=== PATIENT | male | born 1955 | race Caucasian/White ===

== ENCOUNTER 2016-12-12 12:48 | Emergency (ER) | payer OTHER ==
[2016-12-12 12:57] VITALS: PULSE 74; RESP 18; TEMP 97.7; O2SAT 97
--- NOTE | 2016-12-12 13:34 | EDPHY ---
H & P Stated Complaint: Nausea x 2 wks; dizzy/having trouble concentrating Time Seen by Provider: 12/12/16 13:11 HPI/ROS: CHIEF COMPLAINT: Dizzy HISTORY OF PRESENT ILLNESS: The patient is a 61 year old male who presents to the emergency department with nausea and dizziness. The patient has been feeling nauseous for the past 2 weeks. The nausea comes in waves. No associated emesis or abdominal pain. Over the last 4 days, the patient developed dizziness. The dizziness occurs when standing or moving quickly. He feels off balance and disoriented. He states he is more fatigued than usual. Today he felt a low grade headache in the front of his head. Patient also describes an episode of feeling off balance drifting to the left. Patient denies chest pain or shortness of breath. He denies fevers, chills, cough, patient denies numbness or tingling in his arms or legs, visual complaints, focal weakness, or head trauma. Patient does report he has a history of having carotid stenosis bilaterally for which she is followed by Dr. Mckeon. REVIEW OF SYSTEMS: Aside from elements discussed in the HPI, a comprehensive 10-point review of systems was reviewed and is negative. PAST MEDICAL HISTORY: Anterior cervical disc fusion, Degenerative disc disease, Bilateral carotid blockage. SOCIAL HISTORY: . Retired pharmacist. VITAL SIGNS: Reviewed by me GENERAL: Well-developed, well-nourished, resting comfortably in no respiratory distress. HEENT: Atraumatic. Eyes: No icterus, no injection. Slight nystagmus on rightward gaze. Mouth: moist mucous membranes. No erythema or lesions. Neck: supple with no adenopathy. No carotid bruits. LUNGS: Clear to auscultation bilaterally, no wheezes, rhonchi or rales. CARDIAC: Regular rate and rhythm, no rubs, murmurs or gallops. ABDOMEN: Soft, nontender, nondistended, bowel sounds normal. BACK: No CVA tenderness. EXTREMITIES: No trauma. No edema. Range of motion is normal throughout. NEURO: Alert and oriented, cranial nerves II through XII are intact. Motor strength 5 over 5 in all major muscle groups. Sensation intact to light touch. Normal finger to nose. SKIN: Warm and dry, no rash. PSYCHIATRIC: Normal mentation, no agitation. Portions of this note were transcribed by a medical staff assistant. I personally performed a history, physical exam, medical decision making, and confirmed accuracy of information the transcribed note. - Personal History Current Tetanus Diphtheria and Acellular Pertussis (TDAP): Unsure - Medical/Surgical History Other PMH: blockage in carotids (followed by Mike). cholesterol - Social History Smoking Status: Never smoked Constitutional: Initial Vital Signs Temperature (C) 36.5 C 12/12/16 12:50 Heart Rate 74 12/12/16 12:50 Respiratory Rate 18 12/12/16 12:50 O2 Sat (%) 97 12/12/16 12:50 O2 Delivery Mode Room Air Allergies/Adverse Reactions: No Known Allergies Allergy (Verified 12/12/16 12:57) Home Medications: Medication Instructions Recorded Aspirin [Aspirin 81mg (OTC)] 0 mg PO DAILY 03/21/12 CHOLECALCIFEROL [Vitamin D] 4,000 unit PO 03/21/12 DESVENLAFAXINE SUCCINATE [Pristiq] 0 mg PO 03/21/12 ESOMEPRAZOLE MAG TRIHYDRATE 0 mg PO DAILY 03/21/12 [NEXIUM] Lisinopril [Zestril 5 mg (RX)] 0 mg PO DAILY 03/21/12 Pregabalin [Lyrica] 0 mg PO BID 03/21/12 Rosuvastatin Calcium [Crestor 40mg 0 mg PO DAILY 03/21/12 (RX)] Cyclobenzaprine [Flexeril 10 MG 10 mg PO TID 03/25/12 (RX)] Alfuzosin HCl [Alfuzosin HCl ER] 10 mg PO 12/12/16 Hydrochlorothiazide [HCTZ (*)] 12.5 mg PO 12/12/16 Levothyroxine [Synthroid 125 mcg 125 mcg PO DAILY06 12/12/16 (*)] Meclizine HCl [Meclizine HCl 25 mg 25 mg PO TID PRN #20 tab 12/12/16 (RX,OTC)] Meloxicam [Mobic 7.5 mg] 7.5 mg PO 12/12/16 Medical Decision Making - Diagnostics EKG Interpretation: 12-LEAD EKG: Please see the full report in [facility]. My interpretation: normal sinus rhythm, T-wave inversion 3 in AVF. Imaging: Results: CT scan of the head was obtained. I viewed the images independently on the PACS system. I discussed the results of the study with the radiologist. Impression: No acute findings. Please see the full radiology report. Results: CTA scan of the head was obtained. I viewed the images independently on the PACS system. I discussed the results of the study with the radiologist. Impression: No acute findings. Please see the full radiology report. Results: CTA scan of the neck was obtained. I viewed the images independently on the PACS system. I discussed the results of the study with the radiologist. Impression: No acute findings, no dissection or significant flow limitations. Please see the full radiology report. ED Course/Re-evaluation: CT imaging and lab work ordered. I offered meclizine or Zofran but patient declines. CT does not demonstrate dissection, hemorrhage, tumor, other abnormalities. Labs normal; no etiology of dizziness appreciated. Discussed further imaging to include MRI with the patient. He would prefer to follow up wiht PCP as out patient. Understands that cerebellar stoke or lesions in CPA better evaluated with MRI. Will take small dose of meclizine. See DC instructions. Differential Diagnosis: Differential diagnoses the patient's presenting complaints was considered including but not limited to intracranial injury, TIA, ischemic cerebrovascular accident, hemorrhagic cerebrovascular accident, hypoglycemia, metastases, tumor , seizure, or electrolyte abnormality - Data Points Laboratory Results: Laboratory Results 12/12/16 13:10 12/12/16 13:10 Medications Given: Discontinued Medications Meclizine HCl (Meclizine Hcl) 25 mg PO EDNOW ONE Stop: 12/12/16 16:09 Last Admin: 12/12/16 16:27 Dose: 25 mg Departure - Departure Disposition: Home, Routine, Self-Care Clinical Impression: Nausea alone, Dizziness, Vertigo Condition: Good Instructions: Vertigo (ED), Dizziness (ED) Additional Instructions: Please consider taking meclizine 25 mg by mouth every 8 hours as needed for dizziness. Please follow up with Dr. Kaufman as soon as possible. Seek care urgently if you develop severe headache, worsening symptoms, falling, vomiting, abdominal pain, fever, chest pain, shortness of breath, numbness or tingling in your arms or legs, or other concerns. Referrals: Paco Kaufman MD [Primary Care Provider] - As per Instructions Prescriptions: Meclizine HCl [Meclizine HCl 25 mg (RX,OTC)] 25 mg PO TID PRN #20 tab PRN Reason: Dizziness Report Scribed for: Kenia Hernandez Report Scribed by: Deborah Reyes Date of Report: 12/12/16 Time of Report: 13:38
[2016-12-12 13:52] LABS: % IMMATURE GRANULYOCYTES 0.6 % (0.0-1.1); ABSOLUTE IMMATURE GRANULOCYTES 0.06 10^3/uL (0.00-0.10); ADD DIFF? NO; ADD MORPH? NO; ADD SCAN? NO; ATYPICAL LYMPHOCYTE FLAG 0 (0-99); FRAGMENT RBC FLAG 0 (0-99); HEMATOCRIT 44.8 % (40.0-51.0); HEMOGLOBIN 15.8 g/dL (13.7-17.5); LEFT SHIFT FLG 0 (0-99); LIPEMIA HEMOLYSIS FLAG 90 (0-99); MEAN CELL HEMOGLOBIN 31.3 pg (27.9-34.1); MEAN CELL HEMOGLOBIN CONCENTR. 35.3 g/dL (32.4-36.7); MEAN CELL VOLUME 88.9 fL (81.5-99.8); MEAN PLATELET VOLUME 11.4 fL (8.7-11.7); PLATELET CLUMPS FLAG 0 (0-99); PLATELET COUNT 169 10^3/uL (150-400); RED BLOOD CELL COUNT 5.04 10^6/uL (4.40-6.38); RED CELL DISTRIBUTION WIDTH 12.3 % (11.5-15.2)
[2016-12-12 13:59] LABS: ALANINE AMINOTRANSFERASE 52 IU/L (21-72); ALBUMIN 4.5 g/dL (3.5-5.0); ALKALINE PHOSPHATASE 59 IU/L (38-126); ANION GAP 7 mEq/L (8-16); ASPARTATE AMINOTRANSFERASE 43 IU/L (17-59); BILIRUBIN,TOTAL 1.4 mg/dL (0.1-1.4); BILIRUBIN-CONJUGATED 0.4 mg/dL (0.0-0.5); CALCIUM 9.7 mg/dL (8.5-10.4); CARBON DIOXIDE 29 mEq/l (22-31); CHLORIDE 103 mEq/L (97-110); CREATININE 1.3 mg/dL (0.7-1.3); GLOMERULAR FILTRATION RATE 57; GLUCOSE 71 mg/dL (70-100); POTASSIUM 4.5 mEq/L (3.5-5.2); SODIUM 139 mEq/L (134-144); TOTAL PROTEIN 7.9 g/dL (6.3-8.2)
[2016-12-12] MEDS ORDERED: IOPAMIDOL (ISOVUE-370) 150 ML BTL IV ONE (14:05)
--- NOTE | 2016-12-12 14:09 | CPEKG ---
Heart Rate: 63 RR Interval: 952 P-R Interval: 172 QRSD Interval: 92 QT Interval: 404 QTC Interval: 414 P [place]: 35 QRS [place]: 83 T Wave [place]: 11 EKG Severity - NORMAL ECG - EKG Impression: SINUS RHYTHM Electronically Signed By: Kenia Hernandez 12-Dec-2016 16:31:42
[2016-12-12 14:10] LABS: TROPONIN I < 0.012 ng/mL (0-0.034)
[2016-12-12] MEDS ORDERED: MECLIZINE HCL 25 MG TAB PO ONE (16:08)
== END 2016-12-12 16:28 | disposition home or self-care (01) ==
DX: R42 Dizziness and giddiness (principal); R11.0 Nausea; Z79.82 Long term (current) use of aspirin
CPT/HCPCS: 84481-90; Q9967

== ENCOUNTER 2018-09-12 07:54 | Inpatient (IN) | payer OTHER ==
--- NOTE | 2018-09-12 06:26 | PDHPUP ---
History & Physical Update H&P update statement: This history and physical update is based on an assessment of the patient which was completed after admission or registration (within 24 hours), but prior to the surgery/procedure. H&P update: H&P reviewed & patient examined, no change in patient's condition since H&P completed
[~2018-09-12 07:54] MED LIST: TRANEXAMIC ACID 3,000 MG/50 ML BAG IRR ONE
[2018-09-12] MEDS ORDERED: ROPIVACAINE 0.2% 80 MG, EPINEPHrine 0.2 MG, KETOROLAC TROMETHAMINE 30 MG in SYRINGE 0 ML IU ONE (08:00)
[2018-09-12] MEDS ORDERED: TRANEXAMIC ACID 3,000 MG in NS (SYRINGE) 50 ML IRR ONE (08:00)
[2018-09-12] MEDS ORDERED: DEXAMETHASONE 4 MG/ML VIAL IVP ONE (08:27)
[2018-09-12] MEDS ORDERED: ACETAMINOPHEN 325 MG TAB PO ONE (08:27)
[2018-09-12] MEDS ORDERED: FAMOTIDINE 20 MG TAB PO ONE (08:27)
[2018-09-12] MEDS ORDERED: ceFAZolin 2 GM/DEXTROSE 100 ML IV ONE (08:27)
[2018-09-12] MEDS ORDERED: MIDAZOLAM 2 MG/2 ML VIAL IVP ONE (10:17)
--- NOTE | 2018-09-12 10:17 | PDANEPAE ---
ANE History of Present Illness Left hip arthroscopy ANE Past Medical History - Cardiovascular History Hx Hypertension: Yes Hx Arrhythmias: No Hx Chest Pain: No Hx Coronary Artery / Peripheral Vascular Disease: Yes Hx CHF / Valvular Disease: No Hx Palpitations: No Cardiovascular History Comment: CAD. dyslipidemia. followed by [facility] - Pulmonary History Hx COPD: No Hx Asthma/Reactive Airway Disease: No Hx Recent Upper Respiratory Infection: No Hx Oxygen in Use at Home: No Hx Sleep Apnea: Yes Sleep Apnea Screening Result - Last Documented: Positive Pulmonary History Comment: obstructive and central apnea positive- uses cpap - Neurologic History Hx Cerebrovascular Accident: No Hx Seizures: No Hx Dementia: No Neurologic History Comment: DDD with hx of 2 cervical fusions in 2009 - Endocrine History Hx Diabetes: No Hypothyroid: No Hyperthyroid: No Obesity: no Endocrine History Comment: hypothyroidism - Renal History Hx Renal Disorders: Yes Renal History Comment: urgency and frequency - Liver History Hx Hepatic Disorders: No - Neurological & Psychiatric Hx Hx Neurological and Psychiatric Disorders: Yes Neurological / Psychiatric History Comment: depression - Cancer History Hx Cancer: No - Congenital Disorder History Hx Congenital Disorders: No - GI History GERD: mild Hx Gastrointestinal Disorders: Yes Gastrointestinal History Comment: GERD - Other Health History Other Health History: wears contacts. small paper cut- darien[facility] office notified - Chronic Pain History Chronic Pain: Yes (left hip) - Surgical History Prior Surgeries: t&a 1966. left shoulder repair 1973. cervical fusion x2 february and may of 2010 ANE Review of Systems Review of Systems: - Exercise capacity METS (RN): 4 METS ANE Patient History - Allergies Allergies/Adverse Reactions: No Known Allergies Allergy (Verified 09/10/18 13:37) - Home Medications Home Medications: Aspirin [Aspirin 81mg (OTC)] 81 mg PO DAILY 03/21/12 [Last Taken 09/05/18] Cyclobenzaprine [Flexeril 10 MG (RX)] 5 - 10 mg PO TID PRN 03/25/12 [Last Taken 09/09/18] Levothyroxine [Synthroid 125 mcg (*)] 125 mcg PO MOTUTHFRSA@06 12/12/16 [Last Taken 09/11/18] Ascorbic Acid [Vitamin C 500 mg (*)] 1,500 mg PO DAILY 09/10/18 [Last Taken ] Atorvastatin Calcium [Lipitor 40 mg (*)] 40 mg PO DAILY 09/10/18 [Last Taken 02/23 06:10] DESVENLAFAXINE SUCCINATE [Pristiq] 50 mg PO DAILY 09/10/18 [Last Taken 09/12/18 06:10] Diclofenac Sodium 1% [Voltaren Gel (*)] 1 bean TP DAILY PRN 09/10/18 [Last Taken 08/08/18] Fluticasone Nasal [Flonase Nasal [place] (RX)] 2 sprays NASAL HS 09/10/18 [Last Taken 09/08/18] Herbals/Supplements -Info Only 1 ea PO DAILY 09/10/18 [Last Taken 08/29/18] Ibuprofen [Motrin (*)] 400 - 800 mg PO DAILY PRN 09/10/18 [Last Taken 09/05/18] Levothyroxine [Synthroid 137 mcg (*)] 137 mcg PO SUWE@06 09/10/18 [Last Taken 06:10] Lisinopril [Zestril 40 mg (*)] 40 mg PO DAILY 09/10/18 [Last Taken 09/11/18] Meloxicam [Mobic 15 mg] 15 mg PO DAILY PRN 09/10/18 [Last Taken 08/08/18] Multivitamins [Multivitamin (*)] 1 each PO DAILY 09/10/18 [Last Taken 08/29/18] Omeprazole 20 mg PO DAILY 09/10/18 [Last Taken 09/12/18 06:10] Tamsulosin HCl [Flomax 0.4 MG (*)] 0.4 mg PO HS 09/10/18 [Last Taken Unknown] amLODIPine BESYLATE [Norvasc 5 mg (*)] 5 mg PO DAILY 09/10/18 [Last Taken 06:10] Acetaminophen [Tylenol 325mg (*)] 325 mg PO DAILY PRN 09/12/18 [Last Taken 09/11] Pregabalin [Lyrica 75mg (*)] 75 mg PO BID 09/12/18 [Last Taken 09/12/18 06:10] celeCOXIB [Celebrex (*)] 200 mg PO DAILY18 09/12/18 [Last Taken 09/11/18 400mg] - NPO status NPO Status: no food or drink >8 hours NPO Since - Liquids (Date): 09/12/18 NPO Since - Liquids (Time): 06:30 NPO Since - Solids (Date): 09/11/18 NPO Since - Solids (Time): 20:30 - Anes Hx Anes Hx: no prior problems - Smoking Hx Smoking Status: Never smoked Marijuana use: No - Alcohol Use Alcohol Use: Occasionally - Family Anes Hx Family Anes Hx: none Family Hx Anesthesia Complications: none ANE Labs/Vital Signs - Labs Result Diagrams: 09/12/18 08:54 - Vital Signs Blood Pressure: 127/74 Heart Rate: 67 Respiratory Rate: 18 O2 Sat (%): 97 Height: 177.8 cm Weight: 98.883 kg ANE Physical Exam - Airway Neck exam: decreased ROM Mallampati Score: Class 2 Mouth exam: normal dental/mouth exam, poor dentition - Pulmonary Pulmonary: no respiratory distress, no rales or rhonchi - Cardiovascular Cardiovascular: regular rate and rhythym, no murmur, rub, or gallop - ASA Status ASA Status: II ANE Anesthesia Plan Anesthesia Plan: spinal Total IV Anesthesia: Yes
[2018-09-12] MEDS ORDERED: MIDAZOLAM 2 MG/2 ML VIAL ONE ×2 (10:18→10:22)
[2018-09-12] MEDS ORDERED: PROPOFOL/EMULSION 500 MG/50 ML BOTTLE IV ONE (10:23)
[2018-09-12] MEDS ORDERED: fentaNYL 100 MCG/2 ML INJ ONE (10:23)
[2018-09-12] MEDS ORDERED: NALOXONE HCL 0.4 MG/ML INJ IVP PRN ×2 (11:16→11:17)
[2018-09-12] MEDS ORDERED: oxyCODONE IR 5 MG TAB PO PRN (11:16)
[2018-09-12] MEDS ORDERED: ACETAMINOPHEN 500 MG TAB PO PRN (11:16)
[2018-09-12] MEDS ORDERED: HYDROCODONE/APAP 5/325 TAB PO PRN (11:16)
[2018-09-12] MEDS ORDERED: HYDROmorphONE/DILAUDID 2 MG/ML INJ IVP PRN (11:16)
[2018-09-12] MEDS ORDERED: fentaNYL 100 MCG/2 ML INJ IVP PRN (11:16)
[2018-09-12] MEDS ORDERED: ONDANSETRON 4 MG/2 ML VIAL IVP PRN ×2 (11:16→11:55)
[2018-09-12] MEDS ORDERED: ONDANSETRON 4 MG/2 ML VIAL ONE (11:45)
[2018-09-12] MEDS ORDERED: DIPHENOXYLATE/ATROPINE LOMOTIL 1 TAB PO PRN (11:55)
[2018-09-12] MEDS ORDERED: PROMETHAZINE HCL 25 MG SUPPR PR PRN (11:55)
[2018-09-12] MEDS ORDERED: TEMAZEPAM 15 MG CAP PO PRN (11:55)
[2018-09-12] MEDS ORDERED: ONDANSETRON DISINTEGRATING 4 MG TAB PO PRN (11:55)
[2018-09-12] MEDS ORDERED: MAGNESIUM HYDROXIDE 30 ML UDCUP PO PRN (11:55)
[2018-09-12] MEDS ORDERED: CYCLOBENZAPRINE 10 MG TAB PO PRN (11:55)
[2018-09-12] MEDS ORDERED: LACTULOSE 20 GM/30 ML UDCUP PO PRN (11:55)
[2018-09-12] MEDS ORDERED: PROMETHAZINE HCL 25 MG/ML INJ IVP PRN (11:55)
[2018-09-12] MEDS ORDERED: BISACODYL 10 MG SUPP PR PRN (11:55)
[2018-09-12] MEDS ORDERED: METOCLOPRAMIDE 10 MG/2 ML VIAL IVP PRN (11:55)
[2018-09-12] MEDS ORDERED: diphenhydrAMINE 25 MG CAP PO PRN (11:55)
[2018-09-12] MEDS ORDERED: POLYETHYLENE GLYCOL 3350 17 GM PKT PO PRN (11:55)
--- NOTE | 2018-09-12 11:55 | POSTOPPROG ---
Post Op Note Date of Operation: 09/12/18 Surgeon: Whit Ledezma [employer] Assistant: fredrick ledezma PA-C Anesthesiologist: Dr. rosen Anesthesia: Spinal, Other (Specify) (adductor canal block) Pre-op Diagnosis: L hip OA Post-op Diagnosis: same Indication: hip pain Procedure: L hip OA Findings: severe hip OA Inf/Abcess present in the surg proc area at time of surgery?: No EBL: 100-500
[2018-09-12] MEDS ORDERED: LR 1,000 ML IV SCH (12:00)
[2018-09-12] MEDS: ACETAMINOPHEN 325 MG TAB PO SCH ×3 (14:42→23:50)
[2018-09-12] MEDS: CYCLOBENZAPRINE 10 MG TAB PO PRN ×2 (16:31→23:50)
--- NOTE | 2018-09-12 16:40 | PDMN ---
Medical Necessity Medical necessity: Pt meets inpt criteria per MD order and [facility] [place], [place] S-560, Hip Arthroplasty, Medicare inpt only list. 63 y/o w/L hip OA admitted for L REYNALDO and post-op care.
--- NOTE | 2018-09-12 17:16 | POSTANESTH ---
Post Anesthetic Evaluation Cardiovascular Status: Normal, Stable Respiratory Status: Normal, Stable Level of Consciousness/Mental Status: Can Participate in Eval Pain Control: Adequate, Prn Tx Ordered Nausea/Vomiting Control: Adequate, Prn Tx Ordered Complications Possibly Related to Anesthesia: None Noted (Doing well. Up to BR. Urination times 2)
[2018-09-12] MEDS: ceFAZolin 2 GM/DEXTROSE 100 ML IV SCH (18:03)
[2018-09-12] MEDS: ASPIRIN 81 MG CHEWABLE TAB PO SCH (20:23)
[2018-09-12] MEDS: PREGABALIN 75 MG CAP PO SCH (20:23)
[2018-09-12] MEDS: SENNOSIDES/DOCUSATE SODIUM TAB PO SCH (20:24)
[2018-09-12] MEDS: FAMOTIDINE 20 MG TAB PO SCH (20:24)
[2018-09-12] MEDS ORDERED: FLUTICASONE NASAL 120 SPRAYS/16 GM MDI EACHNARE SCH (21:00)
[2018-09-12] MEDS ORDERED: TAMSULOSIN HCL 0.4 MG CAP PO SCH (21:00)
[2018-09-12] MEDS: oxyCODONE IR 5 MG TAB PO PRN (21:48)
[2018-09-13] MEDS: ceFAZolin 2 GM/DEXTROSE 100 ML IV SCH (02:46)
[2018-09-13] MEDS: oxyCODONE IR 5 MG TAB PO PRN (02:52)
[2018-09-13] MEDS: ACETAMINOPHEN 325 MG TAB PO SCH (05:59)
[2018-09-13] MEDS ORDERED: LEVOTHYROXINE 125 MCG TAB PO SCH (06:00)
[2018-09-13] MEDS: CYCLOBENZAPRINE 10 MG TAB PO PRN (07:56)
--- NOTE | 2018-09-13 08:14 | GOP ---
DATE OF OPERATION: 09/12/2018 SURGEON: Tristin Johansen MD RISK ASSESSMENT ANALYST: BAUDILIO Bain. PREOPERATIVE DIAGNOSIS: Left hip osteoarthritis. POSTOPERATIVE DIAGNOSIS: Left hip osteoarthritis. PROCEDURE PERFORMED: Left total hip arthroplasty with x-ray. FINDINGS: ESTIMATED BLOOD LOSS: 200 cc. INDICATIONS: The patient has progressively worsening arthritis of the hip which has failed medical m anagement. The patient understands the treatment options including continued non-operative care and has selected surgical intervention. The patient has decided to undergo total hip arthroplasty via th e direct anterior approach, understanding the risks of the procedure including, but not limited to, n eurovascular injury, infection, persistent pain, component wear and loosening, deep venous thrombosis , pulmonary embolism, limb length inequality, hip instability (including dislocation), and intra-oper ative fractures. DESCRIPTION OF PROCEDURE: After proper identification of the patient including verification and sydnee ing the surgical site, the patient was brought to the operating room and placed in the supine positio n. All bony prominences were well padded. Anesthesia was induced without complication and intraveno us prophylactic antibiotics were administered prior to skin incision. The operative leg was placed in the Trumpf Arch table extension and the well leg in a [place] leg ho lder. The patient was prepped and draped in the usual sterile fashion. The C-arm was draped for int ra-operative fluoroscopy to check acetabular position, femoral component position including leg lengt h and femoral offset. Attention was then drawn to surgical exposure of the hip. An incision was made with a #10 Bard Sebastian r blade starting 3 cm lateral and 3 cm distal to the anterior superior iliac spine measuring 8-10 cm and coursing distally toward the greater trochanter. The skin and subcutaneous tissues were divided sharply down to the fascia florencia. The fascia florencia was incised in line with the skin incision exposing the underlying tensor fascia florencia muscle. The muscle was bluntly elevated from the fascia and the f irst extracapsular Cobra retractor was placed laterally at the junction of the superior femoral neck and greater trochanter. The lateral femoral circumflex vessels were identified, cauterized, and divi ded with the Aquamantys bipolar cautery. The deep investing fascia of the TFL was divided to allow p larry mobilization of the muscle preventing damage during the retraction. The reflected head of the rectus femoris muscle was elevated off the anterior hip capsule and a medial Cobra retractor was plac ed just proximal to the lesser trochanter. The anterior capsulotomy was made sharply from the superolateral acetabulum to the saddle junction of the superior femoral neck and greater trochanter, then coursing inferomedial towards the lesser troc hanter. The retractors were then placed in the intracapsular position for femoral neck osteotomy. C orresponding to pre-operative templating, the osteotomy was made with the oscillating saw carefully p rotecting the greater trochanter and soft tissues. The femoral head was removed from the acetabulum with a corkscrew and confirmed to be severely arthritic with exposed bone, deformity and osteophytes. Similar findings were confirmed in the acetabulum. The Arch table extension was then placed in 40 degrees external rotation. Attention was then drawn to the acetabular preparation. After placement of the anterior and posterio r Cobra retractors outside the labrum and intracapsular, the circumferential labrum was removed sharp ly. The foveal contents were then removed and hemostasis obtained with cautery. The first reamer selected was sized using the removed femoral head. Reaming began with medialization and then commenced in 2 mm increments at 45 degrees of abduction and 15 degrees of anteversion using fluoroscopic navigation. Reaming ceased 1 mm less than the definitive acetabular component and pedro esponded to the pre-operative templating. The final acetabular component was inserted using fluorosc opy to achieve proper orientation yielding excellent purchase and stability in the acetabulum. The f inal acetabular liner was then placed and its seating confirmed. Attention was then turned to the femur. The Arch table extension was placed in extension and adducti on, delivering the osteotomized femoral neck into the wound. A 2-pronged femoral elevator was placed at the calcar and another at the tip of the greater trochanter. The posterolateral capsule was rele ased with cautery allowing mobilization of the femur lateral and anterior for preparation. The exter nal rotators were visualized and preserved. A curette and rongeur were used to open the starting poi nt for broaching. Serial broaching started with the #0 broach and ended with the broach that exhibit ed excellent fit in the proximal femur. A change in pitch during mallet strikes was accompanied by t he inability to advance the broach any further. The trial reduction was performed and fluoroscopic n avigation was utilized to check limb length. Adjustments were made to equalize limb length according ly. After the final trials were accepted they were removed and the wound was copiously lavaged. The femo ral component was seated to the same depth as the final broach and the femoral head was impacted onto the clean trunnion. The hip was then reduced for the final time and once more fluoroscopy was used to check that limb length equality was achieved. The wound was irrigated and closed in layers, the fascia florencia with 2-0 Quill, the subcutaneous tissue with 2-0 Quill, and the skin with Dermabond. Sterile dressings were applied. Final sharps and spon ge counts were accurate. The patient was then transferred to a hospital bed and brought to the [facility] room in stable condition. IMPLANTS: Accolade II size 5, a 127 acetabular component, a Trident II 56 mm, liner is a Trident X3 36 mm head, Biolox Delta 36 +0. /[id number]/MODL
--- NOTE | 2018-09-13 08:43 | SOAPPROG ---
SOAP Progress Note Assessment/Plan: Assessment: Patient is doing well POD 1 s/p L REYNALDO Pain management: pain is well controlled on oral pain meds. VTE ppx: recommend aspirin 81 mg BID for 4 weeks, cont MICH and SCDs D/c planning: Patient has done better than anticipated and would like to be discharged to home today. Patient must be released from PT before discharge to home. Plan: 09/13/18 08:42 Subjective: patient is doing well, denies SOB ,chest pain and N/V Objective: Vital Signs Temp Pulse Resp BP Pulse Ox 36.7 C 64 13 142/72 H 98 09/13/18 07:29 09/13/18 07:29 09/13/18 07:29 09/13/18 07:29 09/13/18 07:29 Laboratory Results 09/13/18 04:30 09/12/18 08:54 09/12/18 09/13/18 09/14/18 05:59 05:59 05:59 Intake Total 1750 500 Output Total 1250 350 Balance 500 150 LLE: incision dressing is clean and dry, NVi, pf/df ICD10 Worksheet Patient Problems: Problems Problem Status Onset Primary localized osteoarthritis of left hip Acute
[2018-09-13] MEDS: ASPIRIN 81 MG CHEWABLE TAB PO SCH (08:58)
[2018-09-13] MEDS ORDERED: Desvenlafaxine Succinate [Pristiq] 50 MG PO SCH (09:00)
[2018-09-13] MEDS ORDERED: ATORVASTATIN CALCIUM 40 MG TAB PO SCH (09:00)
[2018-09-13] MEDS ORDERED: amLODIPine BESYLATE 5 MG TAB PO SCH (09:00)
[2018-09-13] MEDS: FAMOTIDINE 20 MG TAB PO SCH (09:00)
[2018-09-13] MEDS: PREGABALIN 75 MG CAP PO SCH (09:00)
[2018-09-13] MEDS ORDERED: LISINOPRIL 40 MG TAB PO SCH (09:00)
[2018-09-13] MEDS ORDERED: PANTOPRAZOLE SODIUM 40 MG TAB PO SCH (09:00)
[2018-09-13] MEDS: SENNOSIDES/DOCUSATE SODIUM TAB PO SCH (09:00)
[2018-09-13 09:03] VITALS: BP 121/71
--- NOTE | 2018-09-13 09:19 | GDS ---
ADMISSION DIAGNOSIS: Left hip osteoarthritis. DISCHARGE DIAGNOSIS: Left hip osteoarthritis. PROCEDURE: Left total hip arthroplasty. VTE PROPHYLAXIS: Recommend aspirin 81 mg twice daily for 4 weeks. BRIEF DESCRIPTION OF HOSPITAL STAY: Patient was admitted for an elective joint arthroplasty. The laith larios tolerated the procedure well and has passed physical therapy. The patient was given appropriat e antibiotic prophylaxis and venous thromboembolism prophylaxis. The patient's pain was well control led on oral pain medication, patient was holding down food, and had urinated. Decision was made to d ischarge the patient. The patient was given post-operative prescriptions pre-operatively. PLAN: Follow up as scheduled in Dr. Johansen's office, 10/04 at 11 a.m. /[id number]/MODL
--- NOTE | 2018-09-13 09:49 | ASMTLACE ---
ERIC Length of stay for Answers: 2 days current admission Acuity / Level of Answers: Yes Care: Did the patient have an inpatient admission? Comorbidities - select Answers: Coronary Artery Disease all that apply Opioid dependence / Chronic pain Other Notes: HTN; Hypothyroid # of Emergency department Answers: 0 visits in the last 6 months Social determinants Answers: Mental health diagnosis (anxiety, depression, pers onality disorders, etc.) Score: 15 Date Signed: 09/13/2018 09:48 AM Electronically Signed By:SPENCER Hardy
[2018-09-16] MEDS ORDERED: LEVOTHYROXINE 137 MCG TAB PO SCH (06:00)
== END 2018-09-13 10:49 | disposition home or self-care (01) | DRG 470 ==
LOC: F3N 07:54
PROVIDERS: ADMIT Orthopaedic Surgery; ATTEND Orthopaedic Surgery
PROC: 0SRB04Z Replacement of Left Hip Joint with Ceramic on Polyethylene Synthetic Substitute, Open Approach (ICD-10-PCS; principal; 2018-09-12 10:00)
DX: M16.12 Unilateral primary osteoarthritis, left hip (principal); F32.9 Major depressive disorder, single episode, unspecified; E78.00 Pure hypercholesterolemia, unspecified; K21.9 Gastro-esophageal reflux disease without esophagitis; I10 Essential (primary) hypertension; G47.30 Sleep apnea, unspecified
CPT/HCPCS: 97110-GP; 97116-GP; 97161-GP; J0171; J0690; J1100; J1885; J2250; J2405; J2704; J2795; J3010